=== PATIENT | female | born 1965 | race Caucasian/White ===

== ENCOUNTER 2019-01-28 07:43 | Day surgery (SDC) | payer BC, OTHER ==
[~2019-01-28 07:43] MED LIST: Lactated Ringers 1,000 ML IV SCH; Lidocaine 1%/Sod Bicarbonate in NS 8.4% 1 ML Syringe IDERM PRN; Sodium Chloride 0.9% 10 ML Syringe FLUSH PRN
[2019-01-28] MEDS ORDERED: Ondansetron 4 MG/2 ML SDV ONE (08:06)
[2019-01-28] MEDS ORDERED: Lidocaine 1% PF 2 ML SDV ONE (08:06)
[2019-01-28] MEDS ORDERED: fentaNYL 250 MCG/5 ML SDV ONE (08:07)
[2019-01-28] MEDS ORDERED: Midazolam 1 MG/ML 2 ML SDV ONE (08:07)
[2019-01-28] MEDS ORDERED: Propofol 200 MG/20 ML SDV ONE (08:07)
[2019-01-28] MEDS ORDERED: ceFAZolin 1 GM Vial ONE (08:09)
[2019-01-28] MEDS ORDERED: Ketorolac 30 MG/ML SDV ONE ×2 (08:11→10:19)
--- NOTE | 2019-01-28 08:52 | PCM.PREANE ---
Preanesthetic Assessment - Anesthesia/Transfusion/Family Hx Anesthesia History: Prior Anesthesia Without Reaction Family History of Anesthesia Reaction: No - Review of Systems General: No Symptoms Pulmonary: No Symptoms, Other (Sleep Apnea uses CPAP sometimes. PE in 2011 resolved. ) Cardiovascular: No Symptoms, Other (History of Cardiac Ablation in 2016 no symptoms since ablation. ) Gastrointestinal: No Symptoms Neurological: Headache (Migraines), Other (Back pain/sciatica. ) Other: Reports: None - Physical Assessment NPO Status Date: 01/27/19 NPO Status Time: 20:30 O2 Sat by Pulse Oximetry: 99 Respiratory Rate: 16 Vital Signs: Last Vital Signs Temp 36.4 C 01/28/19 08:18 Pulse 59 L 01/28/19 08:18 Resp 16 01/28/19 08:18 BP 125/90 01/28/19 08:18 Pulse Ox 99 01/28/19 08:18 Height: 1.68 m Weight: 109.316 kg ASA Class: 2 Mental Status: Alert & Oriented x3 Airway Class: Mallampati = 1 Dentition: Reports: Implants (Front 2 teeth implants. ) Thyro-Mental Finger Breadths: 3 Mouth Opening Finger Breadths: 3 ROM/Head Extension: Full Lungs: Clear to Auscultation, Normal Respiratory Effort Cardiovascular: Regular Rate, Regular Rhythm - Lab Values: Laboratory Last Values MRSA (PCR) Negative 01/25/19 16:36 - Allergies Allergies/Adverse Reactions: Allergies Allergy/AdvReac Type Severity Reaction Status Date / Time Fish Containing Products Allergy Cannot Verified 01/27/19 13:59 Remember gluten Allergy Cannot Verified 01/27/19 13:59 Remember milk Allergy Cannot Verified 01/27/19 13:59 Remember - Acknowledgements Anesthesia Type Planned: ENRIQUE Pt an Appropriate Candidate for the Planned Anesthesia: Yes Alternatives and Risks of Anesthesia Discussed w Pt/Guardian: Yes Pt/Guardian Understands and Agrees with Anesthesia Plan: Yes Additional Comments: Patricia is requesting a enirque block with minimal sedation. She does get very emotional with anesthesia. 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: Musculoskeletal History: Reports: Other (See Below) Other Musculoskeletal History: right leg pain, foot numbness Neurological History: Reports: Headaches, Chronic Psychiatric History: Reports: Anxiety, Other (See Below) Other Psychiatric History: insomnia, fatigue Endocrine/Metabolic History: Reports: None Hematologic History: Reports: Other (See Below) Other Hematologic History: blood clotting disorder Immunologic History: Reports: None Oncologic (Cancer) History: Reports: Basal Cell Carcinoma Dermatologic History: Reports: None - Infectious Disease History Infectious Disease History: Reports: Chicken Pox - Past Surgical History Head Surgeries/Procedures: Reports: None Respiratory Surgical History: Reports: None GI Surgical History: Reports: Cholecystectomy, Colonoscopy, EGD Female Surgical History: Reports: Section, Hysterectomy Male Surgical History: Reports: None Endocrine Surgical History: Reports: None Neurological Surgical History: Reports: None Oncologic Surgical History: Reports: None Dermatological Surgical History: Reports: None - SUBSTANCE USE Smoking Status *Q: Never Smoker Recreational Drug Use History: No - HOME MEDS Home Medications: Home Meds Ascorbic Acid [Vitamin C] 1,000 mg PO DAILY 01/27/19 [History] Cholecalciferol (Vitamin D3) [Vitamin D3] 5,000 unit PO DAILY 01/27/19 [History] - CURRENT (IN HOUSE) MEDS Current Meds: Current Medications Lactated Ringer's (Ringers, Lactated) 1,000 mls @ 125 mls/hr IV ASDIRECTED BERNARD Stop: 01/28/19 23:00 Last Admin: 01/28/19 08:16 Dose: 125 mls/hr Lidocaine/Sodium Bicarbonate (Buffered Lidocaine 1% In Ns 8.4%) 0.25 ml IDERM ONETIME PRN PRN Reason: Prior to IV Start Stop: 01/28/19 18:00 Last Admin: 01/28/19 08:16 Dose: 0.25 ml Sodium Chloride (Saline Flush) 10 ml FLUSH ASDIRECTED PRN PRN Reason: Keep Vein Open Stop: 01/28/19 18:00 Discontinued Medications Cefazolin Sodium (Ancef) Confirm Administered Dose 2 gm .ROUTE .STK-MED ONE Stop: 01/28/19 08:10 Fentanyl (Sublimaze) Confirm Administered Dose 250 mcg .ROUTE .STK-MED ONE Stop: 01/28/19 08:08 Ketorolac Tromethamine (Toradol) Confirm Administered Dose 30 mg .ROUTE .STK- MED ONE Stop: 01/28/19 08:12 Lidocaine HCl (Xylocaine-Mpf 1%) Confirm Administered Dose 4 ml .ROUTE .STK-MED ONE Stop: 01/28/19 08:07 Midazolam HCl (Versed 1 Mg/Ml) Confirm Administered Dose 2 mg .ROUTE .STK-MED ONE Stop: 01/28/19 08:08 Ondansetron HCl (Zofran) Confirm Administered Dose 4 mg .ROUTE .STK-MED ONE Stop: 01/28/19 08:07 Propofol (Diprivan 20 Ml) Confirm Administered Dose 200 mg .ROUTE .STK-MED ONE Stop: 01/28/19 08:08
[2019-01-28] MEDS ORDERED: Lidocaine 0.5% 50 ML SDV ONE (09:02)
[2019-01-28] MEDS ORDERED: Sodium Bicarbonate 8.4% 50 MEQ/50 ML SDV ONE (09:02)
[2019-01-28] MEDS ORDERED: Bupivacaine 0.25% 30 ML SDV ONE (09:22)
[2019-01-28] MEDS ORDERED: fentaNYL 100 MCG/2 ML SDV IVPUSH PRN (09:58)
--- NOTE | 2019-01-28 10:53 | PCM48HPAN ---
Post Anesthesia Note - EVALUATION WITHIN 48HRS OF ANESTHETIC Vital Signs in Normal Range: Yes Patient Participated in Evaluation: Yes Respiratory Function Stable: Yes Airway Patent: Yes Cardiovascular Function Stable: Yes Hydration Status Stable: Yes Pain Control Satisfactory: Yes Nausea and Vomiting Control Satisfactory: Yes Mental Status Recovered: Yes Pulse Rate: 76 SaO2: 92 Resp Rate: 16 Temperature: 98.3 F Blood Pressure: 102/76
[2019-01-28 10:59] VITALS: BP 120/76
--- NOTE | 2019-01-28 11:45 | CR ---
Right wrist: Four views of the right wrist were obtained utilizing C-arm device. Study is a procedural exam showing resection of the trapezium. Final film shows placement of anchor between the first and second metacarpals. Fluoroscopy time is given as 18.1 seconds Impression: 1. Procedural study as described above. Diagnostic code #2
--- NOTE | 2019-02-01 09:28 | PCM.OPNOTE ---
- General Post-Op/Procedure Note Date of Surgery/Procedure: 01/28/19 Operative Procedure(s): right wrist trapeziectomy with tight rope suspension Pre Op Diagnosis: right first carpometacarpal joint osteoarthrosis Post-Op Diagnosis: Same Anesthesia Technique: Regional Block Primary Surgeon: Segundo Vogel Anesthesia Provider: Shamar Jiménez EBJosiane in mLs: 5 Complications: None Condition: Good
--- NOTE | 2019-02-01 10:24 | OR ---
DATE OF OPERATION: 01/28/2019 SURGEON: Segundo Vogel MD OPERATION PERFORMED: Right wrist trapeziectomy with TightRope suspension. PREOPERATIVE DIAGNOSIS: Right 1st carpometacarpal joint osteoarthrosis. POSTOPERATIVE DIAGNOSIS: Right 1st carpometacarpal joint osteoarthrosis. ANESTHESIA: Regional [place] block. ANESTHESIA PROVIDER: Shamar Jiménez CRNA. SENIOR PROPERTY ACCOUNTANT: None. ESTIMATED BLOOD LOSS: Less than 5 mL. COMPLICATIONS: None. CONDITION: Stable. DESCRIPTION OF PROCEDURE: The patient was identified in the preop holding area. Proper site was marked and identified by the surgeon. The patient was taken back to the operating theater where after adequate anesthesia, the patient's right upper extremity had a [place] block and then was sterilely prepped and draped in the usual sterile fashion. OR time-out was performed. The patient received 2 g of IV Ancef before the [place] block. At this time, standard incision was made over the trapezium and the base of the 1st metacarpal. Blunt dissection was taken down. The branch of the radial artery was identified and was retracted. Capsulotomy was then performed, and trapeziectomy was performed in whole with use of C-arm fluoroscopy to make sure no remnants were remaining. At this time, a guide pin was placed for an Arthrex TightRope suspension at the base of the 1st metacarpal making sure the patient could get the hand completely flat and oppose the thumb. This was placed then through the proximal 3rd of the base of the 2nd metacarpal. An incision was made over the 2nd metacarpal. The Guidepin was identified and then was brought out. The TightRope was then brought up through the drill hole with the guidepin. It was found to have adequate positioning as well as tension on C-arm fluoroscopy as well as direct visualization. The EndoButton was then placed over the 2nd metacarpal and it was properly tensioned, so the patient could get the hand flat and oppose the thumb. At this point, adequate saline was irrigated through the wound. 2-0 Vicryl was used for closure at the capsule, 3-0 Vicryl was used subcutaneously, and Monocryl was used for closure of the skin. The patient was placed in a sterile soft dressing and a radial thumb spica splint and sent to the PACU in stable condition. MMODAL /[id number]
== END 2019-01-28 11:40 | disposition home or self-care (01) ==
LOC: JD.SDS 07:43
PROVIDERS: ATTEND Orthopaedic Surgery
DX: M18.9 Osteoarthritis of first carpometacarpal joint, unspecified (principal); I10 Essential (primary) hypertension; K21.9 Gastro-esophageal reflux disease without esophagitis; G47.30 Sleep apnea, unspecified; Z99.89 Dependence on other enabling machines and devices; E78.00 Pure hypercholesterolemia, unspecified; Z91.011 Allergy to milk products; Z91.013 Allergy to seafood
CPT/HCPCS: 25447; 76000; 87641; C1776; J0690; J1885; J2001; J2405; J2704; J3010; J3490; J7120; 01830; J2250

== ENCOUNTER 2020-11-22 11:04 | Emergency (ER) | payer OTHER ==
[2020-11-22 11:22] VITALS: BP 157/94; PULSE 60
--- NOTE | 2020-11-22 11:41 | EDM.PDOC ---
ED HPI GENERAL MEDICAL PROBLEM - General Chief Complaint: Chest Pain Stated Complaint: CHEST PAIN/SOB Time Seen by Provider: 11/22/20 11:18 Source of Information: Reports: Patient, RN Notes Reviewed History Limitations: Reports: No Limitations - History of Present Illness INITIAL COMMENTS - FREE TEXT/NARRATIVE: Patient is a 55-year-old female presenting to the emergency department with complaints of chest pain and shortness of breath. She states the symptoms began on Friday of last week. She does have a history of DVT with PE. She states that on Friday of the week prior, she was having significant discomfort in her left lower extremity. This resolved around of last week, and then Friday she developed a shortness of breath chest pain. She describes the chest pain as a sharp stabbing sensation. It is worse when she takes a deep breath. She is not currently on anticoagulants. At the time of her previous PE, she was on control, therefore they attributed the blood clot to that. She is no longer on control or any hormone replacements. She denies any cough, fever, chills, nausea, vomiting, or diarrhea. Chest Pain Score (Numeric/FACES): 6 - Related Data Allergies Allergy/AdvReac Type Severity Reaction Status Date / Time egg Allergy Cannot Verified 11/22/20 11:16 Remember Fish Containing Products Allergy Cannot Verified 11/22/20 11:16 Remember gluten Allergy Cannot Verified 11/22/20 11:16 Remember milk Allergy Cannot Verified 11/22/20 11:16 Remember Home Meds: Home Meds Ascorbic Acid [Vitamin C] 1,000 mg PO DAILY 01/27/19 [History] Cholecalciferol (Vitamin D3) [Vitamin D3] 5,000 unit PO DAILY 01/27/19 [History] Naproxen [Naprosyn] 500 mg PO Q12HR 5 Days #10 tab 11/22/20 [Rx] Past Medical History HEENT History: Reports: Impaired Vision Other HEENT History: hx of a hematoma to frontal brain, seen on CT on Friday08/04/15 Cardiovascular History: Reports: Blood Clots/VTE/DVT, Syncope Other Cardiovascular History: SVT with ablation, varicose veins Respiratory History: Reports: Bronchitis, Recurrent, Sleep Apnea, SOB Gastrointestinal History: Reports: Cholelithiasis, GERD Other Gastrointestinal History: abdominal pain Genitourinary History: Reports: Renal Calculus 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: Musculoskeletal History: Reports: Other (See Below) Other Musculoskeletal History: right leg pain, foot numbness Neurological History: Reports: Headaches, Chronic Psychiatric History: Reports: Anxiety Other Psychiatric History: insomnia, fatigue Endocrine/Metabolic History: Reports: None, Obesity/BMI 30+ Hematologic History: Reports: Other (See Below) Other Hematologic History: blood clotting disorder Immunologic History: Reports: None Oncologic (Cancer) History: Reports: Basal Cell Carcinoma Dermatologic History: Reports: None - Infectious Disease History Infectious Disease History: Reports: Chicken Pox - Past Surgical History Head Surgeries/Procedures: Reports: None Cardiovascular Surgical History: Reports: Cardiac Ablation Respiratory Surgical History: Reports: None GI Surgical History: Reports: Cholecystectomy Female Surgical History: Reports: Hysterectomy Endocrine Surgical History: Reports: None Neurological Surgical History: Reports: None Oncologic Surgical History: Reports: None Dermatological Surgical History: Reports: None Social & Family History - Family History Family Medical History: No Pertinent Family History - Tobacco Use Tobacco Use Status *Q: Never Tobacco User - Caffeine Use Caffeine Use: Reports: Coffee, Tea - Recreational Drug Use Recreational Drug Use: No ED ROS GENERAL - Review of Systems Review Of Systems: See Below Constitutional: Reports: No Symptoms. Denies: Fever, Chills HEENT: Reports: No Symptoms Respiratory: Reports: Shortness of Breath, Pleuritic Chest Pain. Denies: Cough Cardiovascular: Reports: Chest Pain, Dyspnea on Exertion. Denies: Lightheadedness, Palpitations, Syncope Endocrine: Reports: No Symptoms GI/Abdominal: Reports: No Symptoms : Reports: No Symptoms Musculoskeletal: Reports: No Symptoms Skin: Reports: No Symptoms Neurological: Reports: No Symptoms Psychiatric: Reports: No Symptoms Hematologic/Lymphatic: Reports: No Symptoms Immunologic: Reports: No Symptoms ED EXAM, GENERAL - Physical Exam Exam: See Below General Appearance: Alert, WD/WN, No Apparent Distress Respiratory/Chest: No Respiratory Distress, Lungs Clear, Normal Breath Sounds, No Accessory Muscle Use, Other (Midsternal chest wall tenderness.) Cardiovascular: Normal Peripheral Pulses, Regular Rate, Rhythm, No Edema, No Gallop, No JVD, No Murmur, No Rub Extremities: Other (mild tenderness to palpation of the left calf and popliteal fossa. No redness, warmth, or edema.) Neurological: Alert, Oriented, CN II-XII Intact, Normal Cognition, Normal Gait, Normal Reflexes, No Motor/Sensory Deficits Psychiatric: Normal Affect, Normal Mood Skin Exam: Warm, Dry, Intact, Normal Color, No Rash #1 Interpretation EKG Date: 11/22/20 Time: 11:15 Rhythm: NSR Rate (Beats/Min): 60 [place]: Normal P-Wave: Present QRS: Normal ST-T: Normal QT: Normal Course - Vital Signs Last Recorded V/S: Last Vital Signs Temp 97.7 F 11/22/20 11:19 Pulse 60 11/22/20 11:19 Resp 16 11/22/20 11:19 BP 157/94 H 11/22/20 11:19 Pulse Ox 100 11/22/20 11:19 - Orders/Labs/Meds Orders: Active Orders 24 hr Category Date Time Status Cardiac Monitoring [RC] . DIRECTED Care 11/22/20 11:22 Active EKG Documentation Completion [RC] STAT Care 11/22/20 11:25 Active Pulse Oximetry [RC] CONTINUOUS Care 11/22/20 11:23 Active Labs: Laboratory Tests 11/22/20 11/22/20 11/22/20 Range/Units 11:30 11:30 11:30 WBC 5.07 (3.98-10.04) K/mm3 RBC 4.82 (3.98-5.22) M/mm3 Hgb 13.7 (11.2-15.7) gm/dl Hct 42.9 (34.1-44.9) % MCV 89.0 (79.4-94.8) fl MCH 28.4 (25.6-32.2) pg MCHC 31.9 L (32.2-35.5) g/dl RDW Std Deviation 51.2 H (36.4-46.3) fL Plt Count 316 (182-369) K/mm3 MPV 9.3 L (9.4-12.3) fl Neut % (Auto) 30.6 L (34.0-71.1) % Lymph % (Auto) 49.9 (19.3-51.7) % [place] % (Auto) 13.6 H (4.7-12.5) % Eos % (Auto) 5.1 (0.7-5.8) Baso % (Auto) 0.6 (0.1-1.2) % Neut # (Auto) 1.55 L (1.56-6.13) K/mm3 Lymph # (Auto) 2.53 (1.18-3.74) K/mm3 [place] # (Auto) 0.69 H (0.24-0.36) K/mm3 Eos # (Auto) 0.26 (0.04-0.36) K/mm3 Baso # (Auto) 0.03 (0.01-0.08) K/mm3 PT (9.7-12.0) SECONDS INR APTT (21.7-31.4) SECONDS D-Dimer, Quantitative (0.19-0.50) mg/L Sodium 145 (136-145) mEq/L Potassium 4.3 (3.5-5.1) mEq/L Chloride 105 (98-107) mEq/L Carbon Dioxide 25 (21-32) mEq/L Anion Gap 19.3 H (5-15) BUN 20 H (7-18) mg/dL Creatinine 0.9 (0.55-1.02) mg/dL Est Cr Clr Drug Dosing 66.90 mL/min Estimated GFR (MDRD) > 60 (>60) mL/min BUN/Creatinine Ratio 22.2 H (14-18) Glucose 101 (74-106) mg/dL Calcium 9.1 (8.5-10.1) mg/dL Magnesium 2.4 (1.8-2.4) mg/dl Total Bilirubin 0.4 (0.2-1.0) mg/dL AST 19 (15-37) U/L ALT 38 (14-59) U/L Alkaline Phosphatase 114 (46-116) U/L Troponin I < 0.017 (0.00-0.056) ng/mL C-Reactive Protein 0.4 (<1.0) mg/dL NT-Pro-B Natriuret Pep 31 (0-125) pg/mL Total Protein 8.1 (6.4-8.2) g/dl Albumin 3.7 (3.4-5.0) g/dl Globulin 4.4 gm/dL Albumin/Globulin Ratio 0.8 L (1-2) 11/22/20 11/22/20 Range/Units 12:27 12:27 WBC (3.98-10.04) K/mm3 RBC (3.98-5.22) M/mm3 Hgb (11.2-15.7) gm/dl Hct (34.1-44.9) % MCV (79.4-94.8) fl MCH (25.6-32.2) pg MCHC (32.2-35.5) g/dl RDW Std Deviation (36.4-46.3) fL Plt Count (182-369) K/mm3 MPV (9.4-12.3) fl Neut % (Auto) (34.0-71.1) % Lymph % (Auto) (19.3-51.7) % [place] % (Auto) (4.7-12.5) % Eos % (Auto) (0.7-5.8) Baso % (Auto) (0.1-1.2) % Neut # (Auto) (1.56-6.13) K/mm3 Lymph # (Auto) (1.18-3.74) K/mm3 [place] # (Auto) (0.24-0.36) K/mm3 Eos # (Auto) (0.04-0.36) K/mm3 Baso # (Auto) (0.01-0.08) K/mm3 PT 10.3 (9.7-12.0) SECONDS INR 0.96 APTT 25.1 (21.7-31.4) SECONDS D-Dimer, Quantitative 0.38 (0.19-0.50) mg/L Sodium (136-145) mEq/L Potassium (3.5-5.1) mEq/L Chloride (98-107) mEq/L Carbon Dioxide (21-32) mEq/L Anion Gap (5-15) BUN (7-18) mg/dL Creatinine (0.55-1.02) mg/dL Est Cr Clr Drug Dosing mL/min Estimated GFR (MDRD) (>60) mL/min BUN/Creatinine Ratio (14-18) Glucose (74-106) mg/dL Calcium (8.5-10.1) mg/dL Magnesium (1.8-2.4) mg/dl Total Bilirubin (0.2-1.0) mg/dL AST (15-37) U/L ALT (14-59) U/L Alkaline Phosphatase (46-116) U/L Troponin I (0.00-0.056) ng/mL C-Reactive Protein (<1.0) mg/dL NT-Pro-B Natriuret Pep (0-125) pg/mL Total Protein (6.4-8.2) g/dl Albumin (3.4-5.0) g/dl Globulin gm/dL Albumin/Globulin Ratio (1-2) Meds: Medications Discontinued Medications Generic Name Dose Route Start Last Admin Trade Name [place] PRN Reason Stop Dose Admin Ketorolac Tromethamine 30 mg 11/22/20 13:07 Toradol IVPUSH 11/22/20 13:08 ONETIME ONE - Re-Assessments/Exams Free Text/Narrative Re-Assessment/Exam: 11/22/20 13:11 Patient's work-up was found to grossly unremarkable. D-dimer is normal at 0.38, troponin is undetectable, chest x-ray has no acute abnormalities. EKG shows normal sinus rhythm. Patient's oxygen saturations have been 98 to 100% on room air throughout her stay and she is not tachycardic with a heart rate in the 60s. Discussed results with patient. Recommended a course of prednisone, however patient states that she is trying to keep her body "clean "so she does not want to pursue this route. She did agree to a course of Naprosyn. This prescription will be sent to [facility]. Discussed return precautions. Recommended follow-up with her primary care provider, Kaci Manriquez, however patient stated "she will not tell me anything ". Discharge instructions as documented. Departure - Departure Time of Disposition: 13:14 Disposition: Home, Self-Care 01 Condition: Good Clinical Impression: Atypical chest pain Prescriptions: Naproxen [Naprosyn] 500 mg PO Q12HR 5 Days #10 tab Instructions: Nonspecific Chest Pain, Adult Referrals: Kaci Manriquez STATE ARCHIVIST [Primary Care Provider] - Forms: ED Department Discharge Additional Instructions: You were seen in the emergency department today for chest pain or shortness of breath since Friday of last week. Work-up included blood work, chest x-ray, and an EKG of your heart. Your work-up was found to be normal. You been started on a course of Naprosyn for treatment of chest wall discomfort. Take this medication as prescribed starting this evening. Recommend follow-up with your primary care provider later this week. Return to ER for any new or worsening symptoms of concern. Sepsis Event Note (ED) - Evaluation Sepsis Screening Result: No Definite Risk - Focused Exam Vital Signs: Vital Signs Temp Pulse Resp BP Pulse Ox 11/22/20 11:19 97.7 F 60 16 157/94 H 100 - My Orders Last 24 Hours: My Active Orders 11/22/20 11:22 Cardiac Monitoring [RC] . DIRECTED 11/22/20 11:23 Pulse Oximetry [RC] CONTINUOUS 11/22/20 11:25 EKG Documentation Completion [RC] STAT - Assessment/Plan Last 24 Hours: My Active Orders 11/22/20 11:22 Cardiac Monitoring [RC] . DIRECTED 11/22/20 11:23 Pulse Oximetry [RC] CONTINUOUS 11/22/20 11:25 EKG Documentation Completion [RC] STAT
--- NOTE | 2020-11-22 12:20 | CR ---
Chest: PA and lateral views of the chest were obtained. Comparison: Prior chest x-ray of 09/23/19. Heart size is normal. Tortuous thoracic aorta is seen. Lungs are clear with no acute parenchymal change. Bony structures appear within normal limits. Impression: 1. Nothing acute is appreciated on 2 view chest x-ray. Diagnostic code #1
[2020-11-22] MEDS ORDERED: Ketorolac 30 MG/ML SDV IVPUSH ONE (13:07)
== END 2020-11-22 13:44 | disposition home or self-care (01) ==
LOC: JD.ED 11:04
DX: R07.89 Other chest pain (principal); E66.9 Obesity, unspecified; Z68.41 Body mass index [BMI] 40.0-44.9, adult; Z91.012 Allergy to eggs; Z91.013 Allergy to seafood; Z91.048 Other nonmedicinal substance allergy status; Z91.011 Allergy to milk products
CPT/HCPCS: 36415; 71046; 80053; 83735; 83880; 84484; 85025; 85379; 85610; 85730; 86140; 93005; 96374; 99285; J1885

== ENCOUNTER 2021-10-13 11:59 | Emergency (ER) | payer BC, OTHER ==
[2021-10-13 12:11] VITALS: BP 134/84; PULSE 75
--- NOTE | 2021-10-13 12:22 | EDM.PDOC ---
ED HPI GENERAL MEDICAL PROBLEM - General Chief Complaint: Chest Pain Stated Complaint: CHEST PAIN Time Seen by Provider: 10/13/21 12:12 - History of Present Illness INITIAL COMMENTS - FREE TEXT/NARRATIVE: 55-year-old female presents the clinic with chest pain. Patient had the sensation of her right chest pain roughly an hour prior to arrival. This radiated into her right neck and right arm. Patient was just diagnosed with pulmonary embolisms in the right side. Pain was not associated with any breathing difficulties or shortness of breath. No nausea no vomiting no diaphoresis. She was started on Eliquis 10 mg twice daily for a week and then to the usual maintenance of 5 mg twice daily the patient figured she had Covid early September. She recently had a IgG test that was positive. She has right leg swelling this however is getting better. She had an episode of chest pain about a week ago but this spontaneously got better. No prior history of coronary artery disease. Patient has taken her Eliquis this morning this was her second dose. Chest Pain Score (Numeric/FACES): 3 - Related Data Allergies Allergy/AdvReac Type Severity Reaction Status Date / Time egg Allergy Cannot Verified 10/13/21 12:08 Remember Fish Containing Products Allergy Cannot Verified 10/13/21 12:08 Remember gluten Allergy Cannot Verified 10/13/21 12:08 Remember milk Allergy Cannot Verified 10/13/21 12:08 Remember Home Meds: Home Meds Ascorbic Acid [Vitamin C] 1,000 mg PO DAILY 01/27/19 [History] Cholecalciferol (Vitamin D3) [Vitamin D3] 5,000 unit PO DAILY 01/27/19 [History] Apixaban [Eliquis] 10 mg PO BID 10/13/21 [History] Past Medical History HEENT History: Reports: Impaired Vision Other HEENT History: hx of a hematoma to frontal brain, seen on CT on Friday08/04/15 Cardiovascular History: Reports: Blood Clots/VTE/DVT, Syncope Other Cardiovascular History: SVT with ablation, varicose veins Respiratory History: Reports: Bronchitis, Recurrent, Sleep Apnea, SOB Gastrointestinal History: Reports: Cholelithiasis, GERD Other Gastrointestinal History: abdominal pain Genitourinary History: Reports: Renal Calculus F[employer]ER History: Reports: Musculoskeletal History: Reports: Other (See Below) Other Musculoskeletal History: right leg pain, foot numbness Neurological History: Reports: Headaches, Chronic Psychiatric History: Reports: Anxiety Other Psychiatric History: insomnia, fatigue Endocrine/Metabolic History: Reports: None, Obesity/BMI 30+ Hematologic History: Reports: Other (See Below) Other Hematologic History: blood clotting disorder Immunologic History: Reports: None Oncologic (Cancer) History: Reports: Basal Cell Carcinoma Dermatologic History: Reports: None - Infectious Disease History Infectious Disease History: Reports: Chicken Pox - Past Surgical History Head Surgeries/Procedures: Reports: None Cardiovascular Surgical History: Reports: Cardiac Ablation Respiratory Surgical History: Reports: None GI Surgical History: Reports: Cholecystectomy Female Surgical History: Reports: Hysterectomy Endocrine Surgical History: Reports: None Neurological Surgical History: Reports: None Oncologic Surgical History: Reports: None Dermatological Surgical History: Reports: None Social & Family History - Family History Family Medical History: No Pertinent Family History - Caffeine Use Caffeine Use: Reports: Coffee, Tea ED ROS GENERAL - Review of Systems Review Of Systems: Comprehensive ROS is negative, except as noted in HPI. ED EXAM, GENERAL - Physical Exam Exam: See Below Exam Limited By: No Limitations General Appearance: Alert, No Apparent Distress, Obese Head: Atraumatic, Normocephalic Neck: Normal Inspection, Supple, Non-Tender, Full Range of Motion Respiratory/Chest: No Respiratory Distress, Lungs Clear, Normal Breath Sounds Cardiovascular: Regular Rate, Rhythm, No Edema, No Murmur GI/Abdominal: Normal Bowel Sounds, Soft, Non-Tender Back Exam: Normal Inspection. No: CVA Tenderness (L), CVA Tenderness (R) Extremities: Normal Inspection, Other (Swelling noted to right lower leg this is where the DVT was anticipated she has a ultrasound scheduled for Friday on this) Neurological: Alert, Oriented, Normal Cognition #1 Interpretation EKG Date: 10/13/21 Rhythm: NSR Rate (Beats/Min): 70 [place]: Normal P-Wave: Present QRS: Other (Low voltage and possible early transition precordial lead) ST-T: Normal QT: Normal Comparison: No Change (Significant change from EKG done on November 22, 2020) EKG Interpretation Comments: Abnormal EKG Course - Vital Signs Last Recorded V/S: Last Vital Signs Temp 36.1 C 10/13/21 12:03 Pulse 75 10/13/21 12:03 Resp 16 10/13/21 12:03 BP 134/84 12/04/21 12:03 Pulse Ox 100 10/13/21 12:03 - Orders/Labs/Meds Orders: Active Orders 24 hr Category Date Time Status Chest 1V Frontal [CR] Stat Exams 10/13/21 12:31 Taken Labs: Laboratory Tests 10/13/21 10/13/21 Range/Units 12:55 12:55 PT 10.9 (9.7-12.0) SECONDS INR 0.98 APTT 33.9 H (21.7-31.4) SECONDS Sodium 145 (136-145) mEq/L Potassium 4.2 (3.5-5.1) mEq/L Chloride 107 (98-107) mEq/L Carbon Dioxide 26 (21-32) mEq/L Anion Gap 16.2 H (5-15) BUN 12 (7-18) mg/dL Creatinine 0.9 (0.55-1.02) mg/dL Est Cr Clr Drug Dosing 66.90 mL/min Estimated GFR (MDRD) > 60 (>60) mL/min BUN/Creatinine Ratio 13.3 L (14-18) Glucose 97 (70-99) mg/dL Calcium 9.0 (8.5-10.1) mg/dL Total Bilirubin 0.5 (0.2-1.0) mg/dL AST 19 (15-37) U/L ALT 29 (14-59) U/L Alkaline Phosphatase 104 (46-116) U/L Troponin I < 0.017 (0.00-0.056) ng/mL Total Protein 7.0 (6.4-8.2) g/dl Albumin 3.4 (3.4-5.0) g/dl Globulin 3.6 gm/dL Albumin/Globulin Ratio 0.9 L (1-2) - Re-Assessments/Exams Free Text/Narrative Re-Assessment/Exam: 10/13/21 15:11 EKG is nondiagnostic chest x-ray does not show any acute changes I thought initially that maybe she had a Covid looking pneumonia in both lower lobes compared to x-rays done 2 days ago which showed basically the same thing but thought maybe perhaps a look a little worse radiology thought it was a normal study. His troponin is negative the patient has remained stable here in the emergency department she has some intermittent discomfort but she has had this all along. We will not change any treatment at this point. Departure - Departure Time of Disposition: 15:17 Disposition: Home, Self-Care 01 Clinical Impression: Pulmonary embolus, right - Discharge Information Referrals: Jovana Bright, [facility] [Primary Care Provider] - Forms: ED Department Discharge Additional Instructions: Return to the emergency room with any questions problems or worsening symptoms. Continue taking your medications and the Eliquis as directed. Follow-up in the clinic for recheck as directed. You can have some discomfort associated with the pulmonary embolisms. Use Tylenol for the discomfort. This should get better over time. Sepsis Event Note (ED) - Evaluation Sepsis Screening Result: No Definite Risk - Focused Exam Vital Signs: Vital Signs Temp Pulse Resp BP Pulse Ox 10/13/21 12:03 36.1 C 75 16 134/84 100 - My Orders Last 24 Hours: My Active Orders 10/13/21 12:31 Chest 1V Frontal [CR] Stat - Assessment/Plan Last 24 Hours: My Active Orders 10/13/21 12:31 Chest 1V Frontal [CR] Stat
--- NOTE | 2021-10-14 08:33 | CR ---
Chest: Portable view of the chest was obtained. Comparison: Prior chest CT and chest x-ray performed on 10/11/21. Heart size is within normal limits. Slight patchy densities are seen within the left lung base and more prominent within the right lung base. Upper lungs are clear. Bony structures show nothing acute. Impression: 1. Slight increased density within both lung bases which appear fairly similar to prior study raising the possibility of mild persisting pneumonia. Diagnostic code #3
== END 2021-10-13 15:25 | disposition home or self-care (01) ==
LOC: JD.ED 11:59
DX: I26.99 Other pulmonary embolism without acute cor pulmonale (principal); K21.9 Gastro-esophageal reflux disease without esophagitis; E66.9 Obesity, unspecified; Z68.36 Body mass index [BMI] 36.0-36.9, adult; Z91.012 Allergy to eggs; Z91.013 Allergy to seafood; Z91.011 Allergy to milk products; Z91.018 Allergy to other foods
CPT/HCPCS: 36415; 71045; 71045-26; 80053; 84484; 85610; 85730; 93005; 99285-25